=== PATIENT | female | born 1970 | race Caucasian/White ===

== ENCOUNTER 2019-06-26 14:02 | Emergency (ER) | payer OTHER ==
[~2019-06-26] VITALS: Ht 149.9 cm; Wt 80.0 kg
[~2019-06-26 14:02] MED LIST: ADVIL COLD OR; AMBIEN5 MG PO; AMITRIPTYLIN100 MG PO; ASPIRIN EC81 MG PO; BENTYL20 MG OR; CIPRO500 MG OR; COQ-10100 MG PO; ELAVIL25 MG OR; FLAGYL500 MG OR; FLEXERIL OR; KEFLEX500 MG OR; LEXAPRO20 MG OR; LIPITOR80 MG PO; LORTAB 5 OR; LORTAB 5-325 MG1 TAB PO; LORTAB5 PO; LOSARTAN POT50 MG PO; NORCO1 TA1 PO; PLAVIX75 MG PO; PREDNISONE10 MG PO; PRILOSEC20 MG OR; PRILOSEC20 MG PO; PROMETHAZINE25 MG OR; PROTONIX40 M2 OR; PROTONIX40 M2 PO; RANEXA PO; ROBAXIN-750750 MG OR; ROBAXIN250 MG OR; TIZANIDINE HCL4 MG PO; TRAMADOL HCL50 MG OR; TRAMADOL HCL50 MG PO; WELLBUTRIN150 MG OR; ZOFRAN ODT4 MG OR; [UNRECOGNIZED DRUG - OTHER] OR
[2019-06-26 14:38] LABS: IMMATURE GRANULOCYTES 0.8 % (0.0-5.0); MEAN CELL VOLUME 85.6 fL CALC (80.0-100.0); MEAN CORPUSCULAR HGB 27.6 pG CALC (26.0-32.0); MEAN CORPUSCULAR HGB CONC 32.2 g/L CALC (32.0-36.0); NEUT# 4.7 thou/uL (2.00-7.15); RED BLOOD COUNT 4.39 mill/uL (4.20-5.60); RED CELL DISTRI WIDTH 12.9 % (11.5-15.5)
[2019-06-26 14:47] LABS: HEMATOCRIT 37.6 % (37.0-47.0); HEMOGLOBIN 12.1 g/dl (12.0-16.0)
[2019-06-26 14:57] LABS: ALBUMIN 3.8 g/dL (3.2-5.0); ALKALINE PHOSPHATASE 106 u/l (38-126); ANION GAP 13 (6-22 (CALC)); BILIRUBIN, TOTAL 0.4 mg/dL (0.0-1.4); BUN 17 mg/dL (7-17); BUN/CREATININE RATIO 21 (12-20 (CALC)); CARBON DIOXIDE 23 mmol/l (22-30); CHLORIDE 108 mmol/l (95-108); CREATININE 0.8 mg/dL (0.5-1.0); GFR > 60 ML/MIN (>=60 (CALC)); GFR FOR AFR.AMER. > 60 ML/MIN (>=60 (CALC)); POTASSIUM 4.3 mmol/l (3.5-5.1); SGOT/AST 34 u/l (14-36); TOTAL PROTEIN 6.9 g/dL (6.3-8.2)
[2019-06-26 15:00] LABS: SODIUM 140 mmol/l (137-146)
[2019-06-26 15:03] LABS: URINE BILIRUBIN - DIPSTICK NEGATIVE (NEGATIVE); URINE BLOOD DIPSTICK NEGATIVE (NEGATIVE); URINE COLOR YELLOW; URINE GLUCOSE - DIPSTICK NEGATIVE (NEGATIVE); URINE KETONE NEGATIVE (NEGATIVE); URINE LEUK ESTERASE NEGATIVE (NEGATIVE); URINE NITRITE - DIPSTICK NEGATIVE (Negative); URINE PROTEIN - DIPSTICK NEGATIVE (NEG-TRACE); URINE UROBILINOGEN - DIPSTICK 0.2 E.U./dL (0.2)
[2019-06-26] MEDS ORDERED: VOLTAREN - GENE75 MG PO (15:51)
[2019-06-26] MEDS ORDERED: LORTAB 5/3255 MG PO (15:51)
[2019-06-26] MEDS ORDERED: MIRALAX3350 N1 PO (15:51)
[2019-06-26 16:41] VITALS: BP 114/76
== END 2019-06-26 16:40 | disposition home or self-care (01) | DRG 392 ==
LOC: ED 14:02
PROVIDERS: Family Medicine
DX: K57.30 Diverticulosis of large intestine without perforation or abscess without bleeding (principal); I10 Essential (primary) hypertension
CPT/HCPCS: J0131; Q9967

== ENCOUNTER 2019-07-04 12:24 | Emergency (ER) | payer OTHER ==
[~2019-07-04] VITALS: Ht 149.9 cm; Wt 73.6 kg
[~2019-07-04 12:24] MED LIST changes: +LORTAB 5/3255 MG PO; +MIRALAX3350 N1 PO; +VOLTAREN - GENE75 MG PO
[2019-07-04 13:08] LABS: IMMATURE GRANULOCYTES 0.4 % (0.0-5.0); MEAN CELL VOLUME 84.6 fL CALC (80.0-100.0); MEAN CORPUSCULAR HGB 27.3 pG CALC (26.0-32.0); MEAN CORPUSCULAR HGB CONC 32.3 g/L CALC (32.0-36.0); NEUT# 5.05 thou/uL (2.00-7.15); RED BLOOD COUNT 5.34 mill/uL (4.20-5.60); RED CELL DISTRI WIDTH 13.2 % (11.5-15.5)
[2019-07-04 13:09] LABS: HEMATOCRIT 45.2 % (37.0-47.0); HEMOGLOBIN 14.6 g/dl (12.0-16.0)
[2019-07-04 13:10] LABS: URINE BILIRUBIN - DIPSTICK NEGATIVE (NEGATIVE); URINE BLOOD DIPSTICK NEGATIVE (NEGATIVE); URINE COLOR YELLOW; URINE GLUCOSE - DIPSTICK NEGATIVE (NEGATIVE); URINE KETONE NEGATIVE (NEGATIVE); URINE LEUK ESTERASE NEGATIVE (NEGATIVE); URINE NITRITE - DIPSTICK NEGATIVE (Negative); URINE PROTEIN - DIPSTICK NEGATIVE (NEG-TRACE); URINE SPECIFIC GRAVITY 1.025; URINE UROBILINOGEN - DIPSTICK 0.2 E.U./dL (0.2)
[2019-07-04 13:28] LABS: ALKALINE PHOSPHATASE 127 u/l (38-126); ANION GAP 18 (6-22 (CALC)); BUN 12 mg/dL (7-17); BUN/CREATININE RATIO 14 (12-20 (CALC)); CARBON DIOXIDE 20 mmol/l (22-30); CHLORIDE 105 mmol/l (95-108); CREATININE 0.9 mg/dL (0.5-1.0); GFR > 60 ML/MIN (>=60 (CALC)); GFR FOR AFR.AMER. > 60 ML/MIN (>=60 (CALC)); LIPASE 32 u/l (23-300); POTASSIUM 4.1 mmol/l (3.5-5.1); SGOT/AST 55 u/l (14-36); SODIUM 139 mmol/l (137-146); TOTAL PROTEIN 8.2 g/dL (6.3-8.2)
[2019-07-04 13:32] LABS: ALBUMIN 4.6 g/dL (3.2-5.0); BILIRUBIN, TOTAL 0.7 mg/dL (0.0-1.4)
[2019-07-04] MEDS ORDERED: MAGNESIUM296 ML/BTL PO (15:36)
[2019-07-04 15:40] VITALS: BP 129/64
[2019-07-08] MEDS ORDERED: NORCO1 TA2 PO (15:26)
[2019-07-08] MEDS ORDERED: ZETIA10 MG PO (15:32)
[2019-07-08] MEDS ORDERED: CLONIDINE0.2 MG PO (15:33)
== END 2019-07-04 15:45 | disposition home or self-care (01) | DRG 392 ==
LOC: ED 12:24
PROVIDERS: Family Medicine
DX: R10.32 Left lower quadrant pain (principal); I10 Essential (primary) hypertension

== ENCOUNTER 2019-07-04 19:59 | Emergency (ER) | payer OTHER ==
[~2019-07-04] VITALS: Ht 149.9 cm; Wt 72.0 kg
[~2019-07-04 19:59] MED LIST changes: +MAGNESIUM296 ML/BTL PO
[2019-07-04 21:10] LABS: URINE BILIRUBIN - DIPSTICK NEGATIVE (NEGATIVE); URINE BLOOD DIPSTICK NEGATIVE (NEGATIVE); URINE COLOR YELLOW; URINE GLUCOSE - DIPSTICK NEGATIVE (NEGATIVE); URINE KETONE NEGATIVE (NEGATIVE); URINE LEUK ESTERASE NEGATIVE (NEGATIVE); URINE NITRITE - DIPSTICK NEGATIVE (Negative); URINE PROTEIN - DIPSTICK NEGATIVE (NEG-TRACE); URINE UROBILINOGEN - DIPSTICK 0.2 E.U./dL (0.2)
[2019-07-04 21:16] LABS: HEMATOCRIT 41.8 % (37.0-47.0); HEMOGLOBIN 13.8 g/dl (12.0-16.0); IMMATURE GRANULOCYTES 0.4 % (0.0-5.0); MEAN CELL VOLUME 82.8 fL CALC (80.0-100.0); MEAN CORPUSCULAR HGB 27.3 pG CALC (26.0-32.0); NEUT# 4.88 thou/uL (2.00-7.15); RED BLOOD COUNT 5.05 mill/uL (4.20-5.60); RED CELL DISTRI WIDTH 13.2 % (11.5-15.5)
[2019-07-04 21:25] LABS: ALBUMIN 4.4 g/dL (3.2-5.0); ALKALINE PHOSPHATASE 127 u/l (38-126); AMYLASE 38 u/l (30-110); ANION GAP 17 (6-22 (CALC)); BILIRUBIN, TOTAL 0.7 mg/dL (0.0-1.4); BUN 10 mg/dL (7-17); BUN/CREATININE RATIO 12 (12-20 (CALC)); CARBON DIOXIDE 21 mmol/l (22-30); CHLORIDE 105 mmol/l (95-108); CREATININE 0.8 mg/dL (0.5-1.0); GFR > 60 ML/MIN (>=60 (CALC)); GFR FOR AFR.AMER. > 60 ML/MIN (>=60 (CALC)); LIPASE 30 u/l (23-300); POTASSIUM 3.7 mmol/l (3.5-5.1); SGOT/AST 49 u/l (14-36); SODIUM 139 mmol/l (137-146); TOTAL PROTEIN 7.6 g/dL (6.3-8.2)
[2019-07-04 22:38] VITALS: BP 136/76
[2019-07-08] MEDS ORDERED: NORCO1 TA2 PO (15:26)
[2019-07-08] MEDS ORDERED: ZETIA10 MG PO (15:32)
[2019-07-08] MEDS ORDERED: CLONIDINE0.2 MG PO (15:33)
== END 2019-07-04 22:38 | disposition home or self-care (01) | DRG 392 ==
LOC: ED 19:59
PROVIDERS: Family Medicine
DX: K59.00 Constipation, unspecified (principal); I10 Essential (primary) hypertension

== ENCOUNTER 2019-07-05 09:48 | Emergency (ER) | payer OTHER ==
[~2019-07-05] VITALS: Ht 149.9 cm; Wt 72.0 kg
[2019-07-05 11:07] LABS: URINE BLOOD DIPSTICK NEGATIVE (NEGATIVE); URINE COLOR YELLOW; URINE GLUCOSE - DIPSTICK NEGATIVE (NEGATIVE); URINE KETONE NEGATIVE (NEGATIVE); URINE LEUK ESTERASE NEGATIVE (NEGATIVE); URINE NITRITE - DIPSTICK NEGATIVE (Negative); URINE PROTEIN - DIPSTICK NEGATIVE (NEG-TRACE); URINE SPECIFIC GRAVITY 1.025; URINE UROBILINOGEN - DIPSTICK 0.2 E.U./dL (0.2)
[2019-07-05 11:09] LABS: HEMATOCRIT 38.8 % (37.0-47.0); HEMOGLOBIN 12.6 g/dl (12.0-16.0); IMMATURE GRANULOCYTES 0.4 % (0.0-5.0); MEAN CELL VOLUME 84.7 fL CALC (80.0-100.0); MEAN CORPUSCULAR HGB 27.5 pG CALC (26.0-32.0); MEAN CORPUSCULAR HGB CONC 32.5 g/L CALC (32.0-36.0); NEUT# 2.66 thou/uL (2.00-7.15); RED BLOOD COUNT 4.58 mill/uL (4.20-5.60); RED CELL DISTRI WIDTH 13.3 % (11.5-15.5); URINE BILIRUBIN - DIPSTICK SMALL (NEGATIVE)
[2019-07-05 11:20] LABS: ALBUMIN 3.9 g/dL (3.2-5.0); ALKALINE PHOSPHATASE 107 u/l (38-126); AMYLASE 42 u/l (30-110); ANION GAP 15 (6-22 (CALC)); BILIRUBIN, TOTAL 0.6 mg/dL (0.0-1.4); BUN 11 mg/dL (7-17); BUN/CREATININE RATIO 13 (12-20 (CALC)); CARBON DIOXIDE 21 mmol/l (22-30); CHLORIDE 109 mmol/l (95-108); CREATININE 0.9 mg/dL (0.5-1.0); GFR > 60 ML/MIN (>=60 (CALC)); GFR FOR AFR.AMER. > 60 ML/MIN (>=60 (CALC)); LIPASE 31 u/l (23-300); POTASSIUM 4.2 mmol/l (3.5-5.1); SGOT/AST 45 u/l (14-36); SODIUM 140 mmol/l (137-146); TOTAL PROTEIN 6.9 g/dL (6.3-8.2)
[2019-07-05 11:38] LABS: MYOGLOBIN 31 ng/mL (0 - 62)
[2019-07-05 12:43] VITALS: BP 137/81
[2019-07-08] MEDS ORDERED: NORCO1 TA2 PO (15:26)
[2019-07-08] MEDS ORDERED: ZETIA10 MG PO (15:32)
[2019-07-08] MEDS ORDERED: CLONIDINE0.2 MG PO (15:33)
== END 2019-07-05 12:55 | disposition home or self-care (01) | DRG 392 ==
LOC: ED 09:48
PROVIDERS: Emergency Medicine
DX: K29.70 Gastritis, unspecified, without bleeding (principal); I10 Essential (primary) hypertension; K44.9 Diaphragmatic hernia without obstruction or gangrene; K21.9 Gastro-esophageal reflux disease without esophagitis

== ENCOUNTER 2019-07-16 06:44 | Day surgery (SDC) | payer OTHER ==
[~2019-07-16] VITALS: Ht 149.9 cm; Wt 73.0 kg
[~2019-07-16 06:44] MED LIST changes: +CLONIDINE0.2 MG PO; +NORCO1 TA2 PO; +ZETIA10 MG PO
[2019-07-16 09:09] VITALS: BP 121/79
== END 2019-07-16 09:17 | disposition home or self-care (01) | DRG 951 ==
LOC: ENDO 06:44 → ORM 08:30 → ENDO 09:17
PROVIDERS: ATTEND Surgery
PROC: 0DJD8ZZ Inspection of Lower Intestinal Tract, Via Natural or Artificial Opening Endoscopic (ICD-10-PCS; principal; 2019-07-16)
PROC: 0DB78ZX Excision of Stomach, Pylorus, Via Natural or Artificial Opening Endoscopic, Diagnostic (ICD-10-PCS; 2019-07-16)
DX: Z12.11 Encounter for screening for malignant neoplasm of colon (principal); K57.30 Diverticulosis of large intestine without perforation or abscess without bleeding; K29.70 Gastritis, unspecified, without bleeding; Z80.0 Family history of malignant neoplasm of digestive organs; Z86.010 Personal history of colon polyps

== ENCOUNTER 2019-08-14 17:47 | Emergency (ER) | payer OTHER ==
[~2019-08-14] VITALS: Ht 149.9 cm; Wt 75.0 kg
[2019-08-14] MEDS ORDERED: SULFACET SOD10 % OU (18:19)
[2019-08-14 18:57] VITALS: BP 136/80
== END 2019-08-14 18:57 | disposition home or self-care (01) | DRG 125 ==
LOC: ED 17:47
DX: S05.02XA Injury of conjunctiva and corneal abrasion without foreign body, left eye, initial encounter (principal); S05.01XA Injury of conjunctiva and corneal abrasion without foreign body, right eye, initial encounter; I10 Essential (primary) hypertension; W20.8XXA Other cause of strike by thrown, projected or falling object, initial encounter

== ENCOUNTER 2019-08-27 08:58 | Day surgery (SDC) | payer OTHER ==
[~2019-08-27] VITALS: Ht 149.9 cm; Wt 68.0 kg
[~2019-08-27 08:58] MED LIST changes: +SULFACET SOD10 % OU
[2019-08-27 12:12] VITALS: BP 121/58
== END 2019-08-27 12:31 | disposition home or self-care (01) | DRG 419 ==
LOC: ORM 08:58
PROVIDERS: ATTEND Surgery
PROC: 0FT44ZZ Resection of Gallbladder, Percutaneous Endoscopic Approach (ICD-10-PCS; principal; 2019-08-27)
DX: K81.1 Chronic cholecystitis (principal); K82.8 Other specified diseases of gallbladder
CPT/HCPCS: J0131; J2710; Q9967

== ENCOUNTER 2019-09-07 08:23 | Emergency (ER) | payer OTHER ==
[~2019-09-07] VITALS: Ht 149.9 cm; Wt 66.0 kg
[2019-09-07 08:48] LABS: HEMATOCRIT 42.3 % (37.0-47.0); HEMOGLOBIN 13.6 g/dl (12.0-16.0); IMMATURE GRANULOCYTES 0.5 % (0.0-5.0); MEAN CELL VOLUME 85.5 fL CALC (80.0-100.0); MEAN CORPUSCULAR HGB 27.5 pG CALC (26.0-32.0); MEAN CORPUSCULAR HGB CONC 32.2 g/L CALC (32.0-36.0); NEUT# 2.9 thou/uL (2.00-7.15); RED BLOOD COUNT 4.95 mill/uL (4.20-5.60); RED CELL DISTRI WIDTH 13.5 % (11.5-15.5)
[2019-09-07 09:10] LABS: ALBUMIN 4.3 g/dL (3.2-5.0); ALKALINE PHOSPHATASE 107 u/l (38-126); AMYLASE 60 u/l (30-110); ANION GAP 15 (6-22 (CALC)); BILIRUBIN, TOTAL 0.4 mg/dL (0.0-1.4); BUN 18 mg/dL (7-17); BUN/CREATININE RATIO 19 (12-20 (CALC)); CARBON DIOXIDE 23 mmol/l (22-30); CHLORIDE 105 mmol/l (95-108); CREATININE 0.9 mg/dL (0.5-1.0); GFR > 60 ML/MIN (>=60 (CALC)); GFR FOR AFR.AMER. > 60 ML/MIN (>=60 (CALC)); LIPASE 40 u/l (23-300); POTASSIUM 3.8 mmol/l (3.5-5.1); SGOT/AST 35 u/l (14-36); SODIUM 139 mmol/l (137-146); TOTAL PROTEIN 7.9 g/dL (6.3-8.2)
[2019-09-07 09:21] LABS: MYOGLOBIN 21 ng/mL (0 - 62)
[2019-09-07] MEDS ORDERED: Levaquin PO (10:51)
[2019-09-07 11:24] VITALS: BP 159/86
== END 2019-09-07 11:24 | disposition home or self-care (01) | DRG 313 ==
LOC: ED 08:23
PROVIDERS: Emergency Medicine
DX: R07.89 Other chest pain (principal); Z98.890 Other specified postprocedural states
CPT/HCPCS: Q9967; S0164

== ENCOUNTER 2020-05-01 16:11 | Emergency (ER) | payer OTHER ==
[~2020-05-01] VITALS: Ht 149.9 cm; Wt 66.0 kg
[~2020-05-01 16:11] MED LIST changes: +Levaquin PO
[2020-05-01] MEDS ORDERED: BENADRYL 50MG C50 MG PO ×2 (19:10)
[2020-05-01] MEDS ORDERED: PEPCID20 MG PO (19:10)
[2020-05-01] MEDS ORDERED: PREDNISONE20 MG PO (19:10)
[2020-05-01 19:35] VITALS: BP 118/74
== END 2020-05-01 19:35 | disposition home or self-care (01) | DRG 607 ==
LOC: ED 16:11
DX: R21 Rash and other nonspecific skin eruption (principal); I10 Essential (primary) hypertension; Z95.5 Presence of coronary angioplasty implant and graft

== ENCOUNTER 2020-06-23 22:39 | Emergency (ER) | payer OTHER ==
[~2020-06-23] VITALS: Ht 149.9 cm; Wt 66.2 kg
[~2020-06-23 22:39] MED LIST changes: +BENADRYL 50MG C50 MG PO; +PEPCID20 MG PO; +PREDNISONE20 MG PO
[2020-06-23] MEDS ORDERED: D31000 UNI1 PO (23:11)
[2020-06-23 23:41] LABS: URINE BILIRUBIN - DIPSTICK NEGATIVE (NEGATIVE); URINE BLOOD DIPSTICK NEGATIVE (NEGATIVE); URINE COLOR YELLOW; URINE GLUCOSE - DIPSTICK NEGATIVE (NEGATIVE); URINE KETONE NEGATIVE (NEGATIVE); URINE LEUK ESTERASE NEGATIVE (NEGATIVE); URINE NITRITE - DIPSTICK NEGATIVE (Negative); URINE PROTEIN - DIPSTICK NEGATIVE (NEG-TRACE); URINE SPECIFIC GRAVITY 1.025; URINE UROBILINOGEN - DIPSTICK 0.2 E.U./dL (0.2)
[2020-06-24] MEDS ORDERED: MONISTAT1 VA (00:14)
[2020-06-24 00:30] VITALS: BP 110/71
== END 2020-06-24 00:30 | disposition home or self-care (01) | DRG 759 ==
LOC: ED 22:39
PROVIDERS: Emergency Medicine
DX: N76.0 Acute vaginitis (principal); I10 Essential (primary) hypertension; I25.10 Atherosclerotic heart disease of native coronary artery without angina pectoris

== ENCOUNTER 2020-11-15 22:24 | Emergency (ER) | payer OTHER ==
[~2020-11-15] VITALS: Ht 149.9 cm; Wt 65.0 kg
[~2020-11-15 22:24] MED LIST changes: +D31000 UNI1 PO; +MONISTAT1 VA
[2020-11-15 23:41] LABS: HEMATOCRIT 40.5 % (37.0-47.0); IMMATURE GRANULOCYTES 0.7 % (0.0-5.0); MEAN CELL VOLUME 85.8 fL CALC (80.0-100.0); MEAN CORPUSCULAR HGB 27.5 pG CALC (26.0-32.0); MEAN CORPUSCULAR HGB CONC 32.1 g/dL CAL (32.0-36.0); NEUT# 5.38 thou/uL (2.00-7.15); RED BLOOD COUNT 4.72 mill/uL (4.20-5.60); RED CELL DISTRI WIDTH 12.5 % (11.5-15.5)
[2020-11-15 23:56] LABS: URINE BILIRUBIN - DIPSTICK NEGATIVE (NEGATIVE); URINE BLOOD DIPSTICK NEGATIVE (NEGATIVE); URINE COLOR YELLOW; URINE GLUCOSE - DIPSTICK NEGATIVE (NEGATIVE); URINE KETONE NEGATIVE (NEGATIVE); URINE LEUK ESTERASE NEGATIVE (NEGATIVE); URINE NITRITE - DIPSTICK NEGATIVE (Negative); URINE PROTEIN - DIPSTICK NEGATIVE (NEG-TRACE); URINE UROBILINOGEN - DIPSTICK 0.2 E.U./dL (0.2)
[2020-11-15 23:57] LABS: ALBUMIN 4.5 g/dL (3.2-5.0); ALKALINE PHOSPHATASE 95 u/l (38-126); ANION GAP 15 (6-22 (CALC)); BILIRUBIN, TOTAL 0.5 mg/dL (0.0-1.4); BUN 12 mg/dL (7-17); BUN/CREATININE RATIO 16 (12-20 (CALC)); CARBON DIOXIDE 23 mmol/l (22-30); CHLORIDE 102 mmol/l (95-108); CREATININE 0.8 mg/dL (0.5-1.0); GFR > 60 ML/MIN (>=60 (CALC)); GFR FOR AFR.AMER. > 60 ML/MIN (>=60 (CALC)); POTASSIUM 3.8 mmol/l (3.5-5.1); SGOT/AST 56 u/l (14-36); SODIUM 136 mmol/l (137-146); TOTAL PROTEIN 7.9 g/dL (6.3-8.2)
[2020-11-16 00:03] LABS: PROTHROMBIN TIME 9.6 SECONDS (9.0-12.5)
[2020-11-16 00:09] LABS: MYOGLOBIN 26 ng/mL (0 - 62)
[2020-11-16 08:04] VITALS: BP 138/80
== END 2020-11-16 08:04 | disposition home or self-care (01) | DRG 313 ==
LOC: ED 22:24
PROVIDERS: Emergency Medicine
DX: R07.9 Chest pain, unspecified (principal); R51.9 Headache, unspecified; R00.0 Tachycardia, unspecified; I10 Essential (primary) hypertension; K21.9 Gastro-esophageal reflux disease without esophagitis; I25.10 Atherosclerotic heart disease of native coronary artery without angina pectoris; J02.9 Acute pharyngitis, unspecified; R05 Cough; R09.89 Other specified symptoms and signs involving the circulatory and respiratory systems; Z95.5 Presence of coronary angioplasty implant and graft; Z20.822 Contact with and (suspected) exposure to COVID-19
CPT/HCPCS: Q9967

== ENCOUNTER 2020-11-20 12:28 | Emergency (ER) | payer OTHER ==
[~2020-11-20] VITALS: Ht 149.9 cm; Wt 75.0 kg
[2020-11-20 16:03] LABS: HEMATOCRIT 43.1 % (37.0-47.0); HEMOGLOBIN 13.6 g/dl (12.0-16.0); IMMATURE GRANULOCYTES 0.4 % (0.0-5.0); MEAN CELL VOLUME 88.5 fL CALC (80.0-100.0); MEAN CORPUSCULAR HGB 27.9 pG CALC (26.0-32.0); MEAN CORPUSCULAR HGB CONC 31.6 g/dL CAL (32.0-36.0); NEUT# 3.17 thou/uL (2.00-7.15); RED BLOOD COUNT 4.87 mill/uL (4.20-5.60); RED CELL DISTRI WIDTH 12.9 % (11.5-15.5)
[2020-11-20 16:18] LABS: ALBUMIN 4.3 g/dL (3.2-5.0); ALKALINE PHOSPHATASE 96 u/l (38-126); ANION GAP 15 (6-22 (CALC)); BILIRUBIN, TOTAL 0.4 mg/dL (0.0-1.4); BUN 14 mg/dL (7-17); BUN/CREATININE RATIO 21 (12-20 (CALC)); CARBON DIOXIDE 24 mmol/l (22-30); CHLORIDE 104 mmol/l (95-108); CREATININE 0.7 mg/dL (0.5-1.0); GFR > 60 ML/MIN (>=60 (CALC)); GFR FOR AFR.AMER. > 60 ML/MIN (>=60 (CALC)); LIPASE 23 u/l (23-300); POTASSIUM 3.7 mmol/l (3.5-5.1); SGOT/AST 48 u/l (14-36); SODIUM 138 mmol/l (137-146); TOTAL PROTEIN 7.4 g/dL (6.3-8.2)
[2020-11-20] MEDS ORDERED: VENTOLIN HFA IN (17:50)
[2020-11-20] MEDS ORDERED: ZOFRAN4 MG/TAB PO (17:50)
[2020-11-20] MEDS ORDERED: MEDDOSEPAK PO (17:50)
[2020-11-20 18:15] VITALS: BP 120/72
== END 2020-11-20 18:15 | disposition home or self-care (01) | DRG 179 ==
LOC: ED 12:28
DX: U07.1 COVID-19 (principal); R19.7 Diarrhea, unspecified; R52 Pain, unspecified; R43.8 Other disturbances of smell and taste; I10 Essential (primary) hypertension; K21.9 Gastro-esophageal reflux disease without esophagitis; I25.10 Atherosclerotic heart disease of native coronary artery without angina pectoris

== ENCOUNTER 2020-12-22 08:45 | Emergency (ER) | payer OTHER ==
[~2020-12-22] VITALS: Ht 149.9 cm; Wt 60.0 kg
[~2020-12-22 08:45] MED LIST changes: +ASPIRIN 8181 MG PO; -ASPIRIN EC81 MG PO; +MEDDOSEPAK PO; +VENTOLIN HFA IN; +ZOFRAN4 MG/TAB PO
[2020-12-22] MEDS ORDERED: AMITRIPTYLINE150 M1 PO (10:15)
[2020-12-22] MEDS ORDERED: MOTRIN800 MG PO (10:15)
[2020-12-22] MEDS ORDERED: CLONIDINE HCL0.3 MG PO (10:16)
[2020-12-22] MEDS ORDERED: TIZANIDINE HCL4 MG PO (10:17)
[2020-12-22] MEDS ORDERED: ATORVASTATIN CA80 MG PO (10:18)
[2020-12-22 10:25] VITALS: BP 108/62
== END 2020-12-22 10:25 | disposition home or self-care (01) | DRG 605 ==
LOC: ED 08:45
PROC: 0HQGXZZ Repair Left Hand Skin, External Approach (ICD-10-PCS; principal; 2020-12-22)
DX: S61.012A Laceration without foreign body of left thumb without damage to nail, initial encounter (principal); I10 Essential (primary) hypertension; K21.9 Gastro-esophageal reflux disease without esophagitis; I25.10 Atherosclerotic heart disease of native coronary artery without angina pectoris; W26.0XXA Contact with knife, initial encounter; Y93.G1 Activity, food preparation and clean up; Y92.89 Other specified places as the place of occurrence of the external cause; Y99.0 Civilian activity done for income or pay; Z95.5 Presence of coronary angioplasty implant and graft

== ENCOUNTER 2022-08-08 16:10 | Emergency (ER) | payer OTHER ==
[~2022-08-08] VITALS: Ht 149.9 cm; Wt 80.0 kg
[~2022-08-08 16:10] MED LIST changes: +AMITRIPTYLINE150 M1 PO; +ATORVASTATIN CA80 MG PO; +CLONIDINE HCL0.3 MG PO; +MOTRIN800 MG PO
[2022-08-08 18:20] LABS: HEMATOCRIT 42.2 % (37.0-47.0); HEMOGLOBIN 13.5 g/dl (12.0-16.0); IMMATURE GRANULOCYTES 0.4 % (0.0-5.0); MEAN CELL VOLUME 89.4 fL CALC (80.0-100.0); MEAN CORPUSCULAR HGB 28.6 pG CALC (26.0-32.0); NEUT# 6.54 thou/uL (2.00-7.15); RED BLOOD COUNT 4.72 mill/uL (4.20-5.60)
[2022-08-08 18:43] LABS: ALBUMIN 4.8 g/dL (3.2-5.0); ALKALINE PHOSPHATASE 119 u/l (38-126); ANION GAP 17 (6-22 (CALC)); BILIRUBIN, TOTAL 0.4 mg/dL (0.0-1.4); BUN 10 mg/dL (7-17); BUN/CREATININE RATIO 14 (12-20 (CALC)); CARBON DIOXIDE 25 mmol/l (22-30); CHLORIDE 102 mmol/l (95-108); CREATININE 0.7 mg/dL (0.5-1.0); GFR FOR AFR.AMER. > 60 ML/MIN (>=60 (CALC)); GFR OTHER RACES > 60 ML/MIN (>=60 (CALC)); SGOT/AST 54 u/l (14-36); SODIUM 139 mmol/l (137-146); TOTAL PROTEIN 8.1 g/dL (6.3-8.2)
[2022-08-08] MEDS ORDERED: ULTRAM50 M1 PO (20:30)
[2022-08-08 20:43] VITALS: BP 167/102
== END 2022-08-08 21:10 | disposition home or self-care (01) | DRG 552 ==
LOC: ED 16:10
PROVIDERS: Family Medicine
DX: M54.2 Cervicalgia (principal); W55.29XA Other contact with cow, initial encounter
CPT/HCPCS: Q9967

== ENCOUNTER 2024-10-02 14:10 | Emergency (ER) | payer OTHER ==
[~2024-10-02] VITALS: Ht 149.9 cm; Wt 68.2 kg
[~2024-10-02 14:10] MED LIST changes: +ULTRAM50 M1 PO
[2024-10-02] MEDS ORDERED: MORPHINE SULFATE 4 MG/ML VIAL IV ONE (14:20)
[2024-10-02] MEDS ORDERED: ONDANSETRON HCl 4 MG/2 ML SDV IV ONE (14:20)
[2024-10-02 14:37] LABS: BASO% 0.5 % (0-3); EOS% 1.6 % (0-8); HEMATOCRIT 42.6 % (37.0-47.0); IMMATURE GRANULOCYTES 0.3 % (0.0-5.0); LYMPH% 29.7 % (15-41); MEAN CELL VOLUME 86.1 fL CALC (80.0-100.0); MEAN CORPUSCULAR HGB 28.3 pG CALC (26.0-32.0); MEAN CORPUSCULAR HGB CONC 32.9 g/dL CAL (32.0-36.0); MONO% 4.3 % (2-13); NEUT# 5.52 thou/uL (2.00-7.15); NEUT% 63.6 % (42-76); RED BLOOD COUNT 4.95 mill/uL (4.20-5.60); RED CELL DISTRI WIDTH 12.9 % (11.5-15.5)
[2024-10-02 14:48] LABS: LIPASE 32 u/l (23-300)
[2024-10-02 14:50] LABS: ALBUMIN 4.7 g/dL (3.2-5.0); CREATININE 0.7 mg/dL (0.5-1.0); POTASSIUM 3.6 mmol/l (3.5-5.1); TOTAL PROTEIN 7.7 g/dL (6.3-8.2)
[2024-10-02 15:01] LABS: BILIRUBIN, TOTAL 0.7 mg/dL (0.02-1.3)
[2024-10-02 16:43] VITALS: BP 157/108
== END 2024-10-02 16:43 | disposition home or self-care (01) | DRG 605 ==
LOC: ED 14:10
PROVIDERS: Family Medicine
DX: S30.1XXA Contusion of abdominal wall, initial encounter (principal); M54.2 Cervicalgia; M79.642 Pain in left hand; I10 Essential (primary) hypertension; I25.10 Atherosclerotic heart disease of native coronary artery without angina pectoris; V53.5XXA Driver of pick-up truck or van injured in collision with car, pick-up truck or van in traffic accident, initial encounter
CPT/HCPCS: J2405; Q9967

== ENCOUNTER 2024-10-04 12:17 | Emergency (ER) | payer OTHER ==
[2024-10-04] VITALS (7 sets, daily range): BP systolic 136–164; BP diastolic 80–103
[~2024-10-04] VITALS: Ht 149.9 cm; Wt 68.0 kg
[2024-10-04] MEDS ORDERED: DEXAMETHASONE SOD. PHOSPHATE 10 MG/ML VIAL IV ONE (13:50)
[2024-10-04] MEDS ORDERED: KETOROLAC TROMETHAMINE 30 MG/ML SDV IV ONE (13:50)
[2024-10-04] MEDS ORDERED: METHOCARBAMOL 500 MG/TAB PO ONE (13:55)
[2024-10-04 14:27] LABS: BASO% 0.7 % (0-3); EOS% 2.1 % (0-8); HEMATOCRIT 42.3 % (37.0-47.0); HEMOGLOBIN 13.5 g/dl (12.0-16.0); IMMATURE GRANULOCYTES 0.5 % (0.0-5.0); LYMPH% 24.1 % (15-41); MEAN CELL VOLUME 88.5 fL CALC (80.0-100.0); MEAN CORPUSCULAR HGB 28.2 pG CALC (26.0-32.0); MEAN CORPUSCULAR HGB CONC 31.9 g/dL CAL (32.0-36.0); MONO% 4.4 % (2-13); NEUT# 5.6 thou/uL (2.00-7.15); NEUT% 68.2 % (42-76); RED BLOOD COUNT 4.78 mill/uL (4.20-5.60)
[2024-10-04 14:43] LABS: ALBUMIN 4.4 g/dL (3.2-5.0); BILIRUBIN, TOTAL 0.6 mg/dL (0.02-1.3); CREATININE 0.7 mg/dL (0.5-1.0); POTASSIUM 3.9 mmol/l (3.5-5.1); TOTAL PROTEIN 7.6 g/dL (6.3-8.2)
[2024-10-04] MEDS ORDERED: METHOCARBAMOL500 MG PO (17:46)
[2024-10-04] MEDS ORDERED: TORADOL PO (17:46)
== END 2024-10-04 18:13 | disposition home or self-care (01) | DRG 605 ==
LOC: ED 12:17
PROVIDERS: Emergency Medicine
DX: S30.1XXA Contusion of abdominal wall, initial encounter (principal); V49.9XXA Car occupant (driver) (passenger) injured in unspecified traffic accident, initial encounter
CPT/HCPCS: J1100; Q9967